=== PATIENT | female | born 1975 | race Caucasian/White ===

== ENCOUNTER 2016-10-07 13:37 | Emergency (ER) | payer OTHER ==
[~2016-10-07] VITALS: Ht 172.7 cm; Wt 104.3 kg
[2016-10-07] MEDS ORDERED: PERCOCET 5-3251 EACH PO (17:27)
--- NOTE | 2016-10-07 17:28 | ED SKIN/ALLERGY COMPLAINT ---
History of Present Illness General Chief Complaint: Skin Rash/ Abcess Stated Complaint: ABCESS Source: patient, family Exam Limitations: no limitations Vital Signs & Intake/Output Vital Signs & Intake/Output Vital Signs Date Time Temp Pulse Resp B/P B/P Pulse O2 O2 Flow FiO2 Mean Ox Delivery Rate 10/07 1745 97.9 96 18 146/89 100 Room Air 10/07 1341 97.3 106 20 136/86 97 Room Air Allergies Coded Allergies: MDX - Prednisone (PREDNISONE) (Severe, RASH SOB 12/15/13) Reconcile Medications Amoxicillin 875 MG TABLET 1 TAB PO BID abcess Oxycodone HCl/Acetaminophen (Percocet 5-325 MG Tablet) 5 MG-325 MG TABLET 1-2 TAB PO BID pain Sulfamethoxazole/Trimethoprim (Bactrim Ds Tablet) 800 MG-160 MG TABLET 1 TAB PO BID abcess Triage Note: PT C/O ABSCESS TO BOTTOM OF HER TAILBONE. PT STATES SHE HAS HAD IT SINCE MONDAY. DENIES DRAINAGE Triage Nurses Notes Reviewed? yes Onset: Gradual Duration: day(s): Timing: remote history Severity: severe Severity Numbers: 8 Location: "tailbone" : No Patient currently breastfeeds: No HPI: 41yo female with hx of hidradenitis presents c/o abscess. She states she began to feel pain on 10/01/16 which gradually worsened over the past week. Pain is worse when sitting or with direct pressure and described at 8/10. Pain is associated with nausea and abdominal pain. Patient also has felt feverish and chills however no recorded fevers at home. The patient has tried warm compress and epsom salt soaks which initally helped however now do not change her symptoms. The patient states she has had previous abcesses in this area, some have drained on their own and others have required I&Ds. She denies chest pain, dyspnea, drainage from this wound. (ANABELA HACKETT) Past History Travel History Traveled to [place] past 21 day No Medical History Any Pertinent Medical History? see below for history Neurological: NONE EENT: NONE Cardiovascular: NONE Respiratory: NONE Gastrointestinal: NONE Hepatic: NONE Renal: NONE Musculoskeletal: NONE Psychiatric: bipolar disease Endocrine: NIDDM Influenza Vaccine: 05/09/10 Surgical History Surgical History: non-contributory Psychosocial History What is your primary language [place] Tobacco Use: Current Daily Use Daily Tobacco Use Amount/Type: => 5 Cigarettes daily ETOH Use: denies use Illicit Drug Use: denies illicit drug use Family History Hx Contributory? No (ANABELA HACKETT) Review of Systems Review of Systems Constitutional: Reports: see HPI. EENTM: Reports: no symptoms. Respiratory: Reports: no symptoms. Cardiovascular: Reports: no symptoms. GI: Reports: see HPI. Genitourinary: Reports: no symptoms. Musculoskeletal: Reports: no symptoms, see HPI. Skin: Reports: see HPI. Neurological/Psychological: Reports: no symptoms. Hematologic/Endocrine: Reports: no symptoms. Immunologic/Allergic: Reports: no symptoms. All Other Systems: Reviewed and Negative (ANABELA HACKETT) Physical Exam Physical Exam General Appearance: well developed/nourished, no apparent distress, alert, awake Head: atraumatic, normal appearance Eyes: Bilateral: normal appearance, EOMI. Ears, Nose, Throat: hearing grossly normal Neck: normal inspection, supple, full range of motion Respiratory: normal breath sounds, no respiratory distress, lungs clear Cardiovascular: regular rate/rhythm Back: normal inspection Extremities: normal inspection, normal range of motion Neurologic/Psych: no motor/sensory deficits, awake, alert, oriented x 3 Skin: 2x3cm area of erythema, fluctuance, tenderness on coccyx with surrounding erythema (ANABELA HACKETT) Progress Differential Diagnosis: abscess/cellulitis, allergic reaction, contact dermatitis, urticaria Plan of Care: Orders Procedure Date/time Status TRUNK AREA CULTURE 10/07 1732 Active Microbiology 10/07 1732 TRUNK: Culture & Sensitivity - RECD 10/07 1732 TRUNK: Gram Stain - RECD Upon second interview patient states no abdominal pain. She would not like abdominal work up or blood work at this time. Abcess I&D draining moderate ammount of purulent drainage. Wound was packed with iodaform packing. Patient tolerated procedure well. She will begin her antibiotic therapy and return in 2 days for packing removal and re-evaluation of wound. I splinted the patient I cannot rule out anything intra-abdominally without further workup. She has no complaints of abdominal pain at this time and does not want any workup for this. She reports that she feels her symptoms are just related to the pain in the coccyx region. (ANABELA HACKETT) Departure Departure Disposition: HOME OR SELF CARE Condition: Stable Clinical Impression Primary Impression: Abscess Referrals: RAFIQ RODRÍGUEZ,TOREY Monahan (PCP/Family) Additional Instructions: Take full course of antibiotics as prescribed. Take percocet as needed for pain. This is a narcotic, can be highly addictive, do not take with alcohol or before driving as may cause sedation. Return in 2 days for packing removal. Return with any worsening symptoms. Please go over all results of today's visit with your primary care doctor. Contact your primary care doctor to let them know you were here in the emergency room. There may be nonspecific findings which may not be related to your visit today here in the emergency room but may require further evaluation and chronic monitoring by your primary care doctor. If you had a laceration today the chance of foreign body always remains. You should follow-up with your primary care doctor for recheck in 3-5 days for a wound check. If you had an x-ray done there is a chance that a fracture could have been missed on initial read and you should follow-up with your primary care doctor for repeat x-rays if symptoms persist. If your blood pressure was elevated here in the emergency room please have rechecked by her primary care doctor within the next 48 hours by your primary care doctor. If you were prescribed a narcotic here in the emergency room or any type of controlled substances you're not allowed to drive while taking this medication or operate any type of heavy machinery. Narcotics can make you feel lightheaded dizziness nausea and can cause constipation. You may need to nut picker a stool softener. Thank you for choosing [facility] emergency room. Please return to the emergency room immediately if you have any other concerns worsening of symptoms. Departure Forms: Customer Survey General Discharge Information Prescriptions: Current Visit Scripts Oxycodone HCl/Acetaminophen (Percocet 5-325 MG Tablet) 1-2 TAB PO BID #10 TAB Amoxicillin 1 TAB PO BID #14 TAB Sulfamethoxazole/Trimethoprim (Bactrim Ds Tablet) 1 TAB PO BID #14 TAB (ANABELA HACKETT) PA/PREFORMING MACHINE OPERATOR Co-Sign Statement Statement: ED Attending supervision documentation- [] I saw and evaluated the patient. I have also reviewed all the pertinent lab results and diagnostic results. I agree with the findings and the plan of care as documented in the PA's/PREFORMING MACHINE OPERATOR's documentation. [x] I have reviewed the ED Record and agree with the PA's/PREFORMING MACHINE OPERATOR's documentation. [] Additions or exceptions (if any) to the PAs/PREFORMING MACHINE OPERATOR's note and plan are summarized below: [] (ISAIAS WEISS DO) Procedures Incision and Drainage Site: coccyx Blade Size: 11 I & D Procedure: Yes: betadine prep, sterile dressing applied, wick placed. Progress: Patient tolerated procedure well (ANABELA HACKETT)
[2016-10-07] MEDS ORDERED: BACTRIM DS TAB1 EACH PO (17:44)
[2016-10-07] MEDS ORDERED: AMOXICILLIN875 M1 PO (17:44)
[2016-10-07 17:45] VITALS: BP 146/89
== END 2016-10-07 17:48 ==
LOC: ERH 13:37
DX: L02.212 Cutaneous abscess of back [any part, except buttock and flank] (principal)
CPT/HCPCS: 87070; 87071